=== PATIENT | female | born 1930 | race Caucasian/White ===

== ENCOUNTER 2019-01-14 12:20 | Inpatient (IN) | payer MEDICARE, MEDICAID ==
[~2019-01-14] VITALS: Ht 167.6 cm; Wt 90.3 kg
--- NOTE | 2019-01-14 12:44 | NUR ---
PT A/OX4, BIB PRIVATE AMBULANCE FROM [facility], C/C GENERALIZED WEAKNESS. PT DOES NOT APPEAR TO BE IN ANY APPARENT DISTRESS. VSS. PT DENIES ANY DISCOMFORT AT THIS TIME.
[2019-01-14] MEDS ORDERED: ACET-2154 PO (12:48)
[2019-01-14] MEDS ORDERED: BISA10SU61 RC (12:48)
[2019-01-14] MEDS ORDERED: ACET-2605 PO ×2 (12:48)
[2019-01-14] MEDS ORDERED: DABI150C PO (12:48)
[2019-01-14] MEDS ORDERED: ERGO500040 PO (12:48)
[2019-01-14] MEDS ORDERED: FURO-152 PO (12:48)
[2019-01-14] MEDS ORDERED: CLOP75TA15 PO (12:48)
[2019-01-14] MEDS ORDERED: MAGN400O6 PO (12:48)
[2019-01-14] MEDS ORDERED: NA P133E RC (12:48)
[2019-01-14] MEDS ORDERED: PHEN100C4 PO ×2 (12:48)
[2019-01-14] MEDS ORDERED: AMLO2.5T4 PO (12:48)
--- NOTE | 2019-01-14 13:07 | NUR ---
GRIEVANCE COORDINATOR AT BEDSIDE.
[2019-01-14 13:09] LABS: BASOPHILS # (AUTO) 0.1 K/uL (0.0-8.0); BASOPHILS % (AUTO) 0.6 % (0.0-2.0); EOSINOPHILS # (AUTO) 0.3 K/uL (0.0-0.7); EOSINOPHILS % (AUTO) 2.4 % (0.0-7.0); HEMATOCRIT 38.5 % (31.2-41.9); LYMPHOCYTES # (AUTO) 2.1 K/uL (20.0-40.0); MEAN CORPUSCULAR HEMOGLOBIN 30.4 uug (24.7-32.8); MEAN CORPUSCULAR HGB CONC 34 g/dL (32.3-35.6); MEAN CORPUSCULAR VOLUME 90.2 fL (75.5-95.3); NEUTROPHILS # (AUTO) 7.3 K/uL (1.8-8.9); PLATELET COUNT (AUTO) 240 K/uL (179-408); RED BLOOD CELL COUNT(AUTO) 4.27 MIL/uL (3.63-4.92); WHITE BLOOD COUNT (AUTO) 10.7 K/uL (3.8-11.8)
[2019-01-14 13:13] LABS: *BILIRUBIN,URIN NEGATIVE (NEGATIVE); *CLARITY,URINE CLEAR (CLEAR); *COLOR,URINE LIGHT YELLOW (YELLOW); *KETONES,URINE NEGATIVE (NEGATIVE); *UROBILINOGEN,URINE 0.2 E.U./dl (NORMAL); LEUKOCYTE ESTERASE ,URINE TRACE (NEGATIVE); NITRITE, URINE NEGATIVE (NEGATIVE); PH,URINE 5.5 (5.0-8.0); UGLUCOSE NEGATIVE (NEGATIVE)
[2019-01-14 13:17] LABS: CARBON DIOXIDE 23 mmol/L (21-32); CHLORIDE 103 mmol/L (98-107); CREATININE 0.6 mg/dL (0.6-1.3); GLUCOSE 102 mg/dL (74-106); POTASSIUM 4.7 mmol/L (3.5-5.1); UREA NITROGEN, BLOOD 18 mg/dL (7-18)
[2019-01-14 13:20] LABS: *BLOOD, URINE TRACE (NEGATIVE)
[2019-01-14 13:23] LABS: BACTERIA,URINE MANY /HPF (NONE SEEN); SQUAMOUS EPITHELIAL CELL,UR FEW /HPF (NONE SEEN)
[2019-01-14 13:29] LABS: ALANINE AMINOTRANSFERASE 17 U/L (14-59); ALKALINE PHOSPHATASE 137 U/L (50-136); ASPARTATE AMINOTRANSFERASE 14 U/L (15-37); BILIRUBIN,DIRECT 0.1 mg/dL (0.0-0.2); BILIRUBIN,TOTAL 0.4 mg/dL (0.2-1.0); TOTAL PROTEIN, SERUM 7.2 g/dL (6.4-8.2)
--- NOTE | 2019-01-14 14:02 | NUR ---
Radiology at bedside for US.
--- NOTE | 2019-01-14 14:28 | NUR ---
PT TAKEN TO RADIOLOGY FOR CT SCAN.
--- NOTE | 2019-01-14 14:45 | NUR ---
PT BACK IN ER FROM RADIOLOGY.
[2019-01-14] MEDS ORDERED: PHENYTOIN SODIUM EXTENDED 100 MG CAPSULE.SA PO SCH ×2 (16:15→17:00)
[2019-01-14] MEDS ORDERED: BISACODYL 10 MG SUPP.RECT RC PRN (16:15)
[2019-01-14] MEDS ORDERED: MAGNESIUM HYDROXIDE 30 ML LIQUID UDC PO PRN (16:15)
[2019-01-14] MEDS ORDERED: ACETAMINOPHEN 325 MG TABLET PO PRN (16:15)
--- NOTE | 2019-01-14 16:19 | NUR ---
ADMITTING REPORT GIVEN TO MICHELLE CLIFFORD.
--- NOTE | 2019-01-14 16:22 | NUR ---
Pt. admitted to ROOM 310, under care of DR. ORELLANA Belongs List completed
[2019-01-14] MEDS ORDERED: ONDANSETRON 4 MG/2 ML VIAL IV PRN (16:30)
[2019-01-14 17:00] VITALS: BP 148/70
[2019-01-14] MEDS: CEFTRIAXONE 1 G in IV DEXTROSE 5% 50 ML IV SCH (19:00)
[2019-01-14] MEDS: PHENYTOIN 100 MG/4 ML UDC PO SCH (19:06)
--- NOTE | 2019-01-14 19:38 | NUR ---
PT ARRIVED VIA GURNEY PT STABLE AT THIS TIME. IV IS PATENT AND INTACT. ON RA, HEP LOCK, DENIES PAIN AT THIS TIME. CONTINUE TO MONITOR.
[2019-01-14 19:57] VITALS: BP 156/71
[2019-01-14] MEDS: ENALAPRILAT DIHYDRATE 1.25 MG/1 ML VIAL IV PRN (20:28)
[2019-01-14] MEDS ORDERED: DABIGATRAN ETEXILATE MESYLATE 75 MG CAPSULE PO ONE (20:30)
[2019-01-14 22:00] VITALS: BP 103/58
[2019-01-14] MEDS: HYDROCODONE/APAP 5-325MG TABLET PO PRN (23:54)
[2019-01-15 01:16] VITALS: BP 94/54
[2019-01-15] MEDS: HYDROCODONE/APAP 5-325MG TABLET PO PRN (04:43)
[2019-01-15 05:05] VITALS: BP 114/62
--- NOTE | 2019-01-15 05:18 | NUR ---
pt slept intermittently through the night and was easily awoken, pt complained of leg pain, Homans sign is negative, Doppler study was negative for DVT. SCD applied and was helpful but pain medication was effective. pt denies having any difficulty breathing but with excessive movement pt has occasional labored breathing which resolves with rest. pt during the night had multiple episodes of urinary urgency, pt would feel like she needed to urinate but was unable to. bladder scan was done pt had 300ml, pt was able to pee after scan. All needs met, safety measures are in place, call light within reach, bed alarm is on.
[2019-01-15 05:56] LABS: BASOPHILS % (AUTO) 0.3 % (0.0-2.0); EOSINOPHILS # (AUTO) 0.2 K/uL (0.0-0.7); EOSINOPHILS % (AUTO) 2.2 % (0.0-7.0); HEMATOCRIT 37.8 % (31.2-41.9); LYMPHOCYTES # (AUTO) 1.8 K/uL (20.0-40.0); LYMPHOCYTES % (AUTO) 19.1 % (20.5-51.5); MEAN CORPUSCULAR HEMOGLOBIN 30.8 uug (24.7-32.8); MEAN CORPUSCULAR HGB CONC 34 g/dL (32.3-35.6); MEAN CORPUSCULAR VOLUME 89.5 fL (75.5-95.3); MONOCYTES # (AUTO) 0.9 K/uL (2.0-10.0); MONOCYTES % (AUTO) 9.8 % (0.0-11.0); NEUTROPHILS # (AUTO) 6.5 K/uL (1.8-8.9); NEUTROPHILS % (AUTO) 68.6 % (38.5-71.5); PLATELET COUNT (AUTO) 225 K/uL (179-408); RED BLOOD CELL COUNT(AUTO) 4.23 MIL/uL (3.63-4.92); WHITE BLOOD COUNT (AUTO) 9.5 K/uL (3.8-11.8)
[2019-01-15] MEDS: PANTOPRAZOLE SODIUM 40 MG TABLET.DR PO SCH (06:21)
[2019-01-15 06:37] LABS: IRON, SERUM 64 ug/dL (50-175)
[2019-01-15 06:40] LABS: ALANINE AMINOTRANSFERASE 17 U/L (14-59); ALKALINE PHOSPHATASE 129 U/L (50-136); ASPARTATE AMINOTRANSFERASE 8 U/L (15-37); BILIRUBIN,TOTAL 0.4 mg/dL (0.2-1.0); CARBON DIOXIDE 26 mmol/L (21-32); CHLORIDE 103 mmol/L (98-107); CHOLESTEROL 171 mg/dL (<200); CREATININE 0.8 mg/dL (0.6-1.3); GLUCOSE 97 mg/dL (74-106); HDL CHOLESTEROL 62 mg/dL (40-60); MAGNESIUM 1.9 mg/dL (1.8-2.4); PHOSPHOROUS 4.1 mg/dL (2.5-4.9); POTASSIUM 4.1 mmol/L (3.5-5.1); TOTAL PROTEIN, SERUM 6.7 g/dL (6.4-8.2); TRIGLYCERIDES 95 MG/DL (30-150); UREA NITROGEN, BLOOD 18 mg/dL (7-18)
[2019-01-15] MEDS: FUROSEMIDE 20 MG TABLET PO SCH (08:32)
[2019-01-15] MEDS: CLOPIDOGREL 75 MG TABLET PO SCH (08:32)
[2019-01-15] MEDS: PHENYTOIN 100 MG/4 ML UDC PO SCH ×2 (08:33→16:36)
[2019-01-15] MEDS: AMLODIPINE 2.5 MG TABLET PO SCH (08:36)
[2019-01-15 12:15] VITALS: BP 124/55
[2019-01-15] MEDS ORDERED: DABIGATRAN ETEXILATE MESYLATE 150 MG CAPSULE PO SCH (12:22)
[2019-01-15] MEDS: PHENYTOIN SODIUM EXTENDED 100 MG CAPSULE.SA PO SCH (12:50)
[2019-01-15 15:18] VITALS: BP 132/68
[2019-01-15] MEDS: CEFTRIAXONE 1 G in IV DEXTROSE 5% 50 ML IV SCH (17:05)
--- NOTE | 2019-01-15 18:43 | NUR ---
Patient resting in bed, no complaints of pain or distress noted. Patient continues in antibiotic treatment. Afebrile. Pradaxa brought in by family today, sent to pharmacy. Will endorse care to oncoming shift.
--- NOTE | 2019-01-15 20:00 | NUR ---
RECEIVED PATIENT AWAKE, ALERT, AND ORIENTED X 3-4, IN BED WITH FAMILY AT BEDSIDE. NO COMPLAINTS OF PAIN OR DISCOMFORT VERBALIZED. ALL SAFETY AND FALL PRECAUTION MEASURES IN PLACE. BED IN LOWEST POSITION WITH BRAKE APPLIED. 2 SIDE RAILS ARE UP AND IN LOCKED POSITION. CALL LARRY AND PERSONAL ITEMS ARE WITHIN REACH. WILL CONTINUE TO MONITOR.
[2019-01-15 20:27] VITALS: BP 111/64
[2019-01-15] MEDS: DABIGATRAN 75 MG PO SCH (20:29)
[2019-01-16 00:42] VITALS: BP 116/63
[2019-01-16 05:05] VITALS: BP 142/72
--- NOTE | 2019-01-16 05:25 | NUR ---
PATIENT SLEPT INTERMITTENTLY THROUGHOUT NIGHT. THERE WERE NO COMPLAINTS OF PAIN OR ACUTE DISTRESS THIS SHIFT. VS ARE WNL AND PATIENT IS STABLE WITH SINUS TACHY RHYTHM. ALL PRESCRIBED MEDICATIONS PROVIDED ORDERED AND TOLERATED WELL. ALL NURSING NEEDS MET PROMPTLY. SAFETY AND FALL PRECAUTIONS REMAIN IN PLACE. BED IN LOWEST POSITION WITH BRAKE APPLIED. 2 SIDE RAILS ARE UP AND IN LOCKED POSITION. CALL LIGHT AND PERSONAL ITEMS ARE WITHIN REACH AT ALL TIMES. WILL PROVIDE REPORT TO ONCOMING SHIFT.
[2019-01-16] MEDS: PANTOPRAZOLE SODIUM 40 MG TABLET.DR PO SCH (06:08)
[2019-01-16] MEDS: HYDROCODONE/APAP 5-325MG TABLET PO PRN ×2 (06:21→20:28)
[2019-01-16] MEDS ORDERED: FLEET ENEMA 133 ML BOTTLE RC PRN (09:00)
[2019-01-16] MEDS: CLOPIDOGREL 75 MG TABLET PO SCH (09:12)
[2019-01-16] MEDS: FUROSEMIDE 20 MG TABLET PO SCH (09:13)
[2019-01-16] MEDS: PHENYTOIN 100 MG/4 ML UDC PO SCH ×2 (09:15→17:24)
[2019-01-16] MEDS: AMLODIPINE 2.5 MG TABLET PO SCH (09:15)
[2019-01-16] MEDS: DABIGATRAN 75 MG PO SCH ×2 (09:17→20:27)
[2019-01-16 11:12] VITALS: BP 111/48
[2019-01-16] MEDS: PHENYTOIN SODIUM EXTENDED 100 MG CAPSULE.SA PO SCH (12:36)
[2019-01-16 18:00] VITALS: BP 121/68
--- NOTE | 2019-01-16 18:38 | NUR ---
PATIENT AO 4, NO SOB OR DISTRESS THIS SHIFT , COOPERATIVE WITH TREATMENT, VS WNL THIS SHIFT ORDERS CARED OUT SAFETY MAINTAINED
--- NOTE | 2019-01-16 20:00 | NUR ---
CHANGE OF SHIFT REPORT RECEIVED FROM VENESSA FLORENTINO. PATIENT IS AWAKE AND ALERT IN BED, ORIENTED X4. PATIENT HAS NO COMPLAINTS OF PAIN OR DISCOMFORT AT THIS TIME. IV SITE IS PATENT AND INTACT. VS ARE WNL AND PATIENT IS STABLE. SAFETY AND FALL PRECAUTIONS ARE IN PLACE. BED IN LOWEST POSITION WITH BRAKE APPLIED. 2 SIDE RAILS ARE UP AND IN LOCKED POSITION. CALL LIGHT AND PERSONAL ITEMS ARE WITHIN REACH AT ALL TIMES. WILL CONTINUE TO MONITOR.
[2019-01-16 20:04] VITALS: BP 125/68
[2019-01-16] MEDS: NITROFURANTOIN/NITROFURAN MAC 100 MG CAPSULE PO SCH (20:28)
[2019-01-17 01:15] VITALS: BP 137/69
--- NOTE | 2019-01-17 05:18 | NUR ---
PATIENT SLEPT INTERMITTENTLY AND COMFORTABLY THROUGHOUT NIGHT WITHOUT COMPLAINT OF PAIN, DISCOMFORT, OR ACUTE DISTRESS. VS ARE WNL AND PATIENT IS STABLE. ALL PRESCRIBED MEDICATIONS GIVEN ORDERED AND TOLERATED WELL. ORAL ANTIBIOTIC GIVEN WITH NO ADVERSE SIDE EFFECTS NOTED OR OBSERVED. ALL SAFETY AND FALL PRECAUTION MEASURES REMAIN IN PLACE. BED IS IN LOWEST POSITION AND BRAKE IS APPLIED. 2 SIDE RAILS ARE UP AND IN LOCKED POSITION. PERSONAL ITEMS AND CALL LIGHT ARE WITHIN REACH AT ALL TIMES. WILL PROVIDE REPORT TO ONCOMING SHIFT.
[2019-01-17 05:33] VITALS: BP 121/70
[2019-01-17] MEDS: PANTOPRAZOLE SODIUM 40 MG TABLET.DR PO SCH (06:13)
[2019-01-17] MEDS: HYDROCODONE/APAP 5-325MG TABLET PO PRN (06:16)
[2019-01-17 08:06] LABS: BASOPHILS % (AUTO) 0.1 % (0.0-2.0); EOSINOPHILS # (AUTO) 0.2 K/uL (0.0-0.7); EOSINOPHILS % (AUTO) 2.3 % (0.0-7.0); HEMATOCRIT 40.4 % (31.2-41.9); HEMOGLOBIN 13.7 g/dL (10.9-14.3); LYMPHOCYTES # (AUTO) 1.9 K/uL (20.0-40.0); LYMPHOCYTES % (AUTO) 17.5 % (20.5-51.5); MEAN CORPUSCULAR HEMOGLOBIN 30.3 uug (24.7-32.8); MEAN CORPUSCULAR HGB CONC 34 g/dL (32.3-35.6); MEAN CORPUSCULAR VOLUME 89.8 fL (75.5-95.3); MONOCYTES % (AUTO) 9.4 % (0.0-11.0); NEUTROPHILS # (AUTO) 7.5 K/uL (1.8-8.9); NEUTROPHILS % (AUTO) 70.7 % (38.5-71.5); PLATELET COUNT (AUTO) 235 K/uL (179-408); WHITE BLOOD COUNT (AUTO) 10.6 K/uL (3.8-11.8)
[2019-01-17 08:34] LABS: CARBON DIOXIDE 28 mmol/L (21-32); CHLORIDE 101 mmol/L (98-107); CREATININE 0.7 mg/dL (0.6-1.3); GLUCOSE 97 mg/dL (74-106); MAGNESIUM 2.2 mg/dL (1.8-2.4); PHOSPHOROUS 4.4 mg/dL (2.5-4.9); POTASSIUM 4.5 mmol/L (3.5-5.1); UREA NITROGEN, BLOOD 18 mg/dL (7-18)
[2019-01-17] MEDS: PHENYTOIN 100 MG/4 ML UDC PO SCH (08:47)
[2019-01-17] MEDS: DABIGATRAN 75 MG PO SCH (08:48)
[2019-01-17] MEDS: NITROFURANTOIN/NITROFURAN MAC 100 MG CAPSULE PO SCH (08:49)
[2019-01-17] MEDS: FUROSEMIDE 20 MG TABLET PO SCH (08:50)
[2019-01-17] MEDS: CLOPIDOGREL 75 MG TABLET PO SCH (08:50)
[2019-01-17] MEDS: AMLODIPINE 2.5 MG TABLET PO SCH (08:53)
--- NOTE | 2019-01-17 09:50 | NUR ---
PATIENT CAME FROM EGD, VS WNL, NO SOB
[2019-01-17 11:10] VITALS: BP 143/73
[2019-01-17] MEDS: PHENYTOIN SODIUM EXTENDED 100 MG CAPSULE.SA PO SCH (12:26)
[2019-01-17] MEDS ORDERED: CYANOCOBALAMIN 1000 MCG/ML VIAL IM SCH (12:45)
[2019-01-17] MEDS ORDERED: CELE100C PO (13:07)
[2019-01-17] MEDS ORDERED: AMLO5TAB4 PO (13:07)
[2019-01-17] MEDS ORDERED: ACID1TAB4 PO (13:07)
[2019-01-17] MEDS ORDERED: HYDR-3326 PO (13:07)
[2019-01-17] MEDS ORDERED: NITR100C11 PO (13:07)
[2019-01-17] MEDS ORDERED: CYAN10006 IM (13:07)
[2019-01-17] MEDS ORDERED: PANT40TA2 PO (13:07)
--- NOTE | 2019-01-17 15:25 | NUR ---
PATIENT IS PICKED UP BY AMBULANCE REPORT GIVEN TO [facility] AT [facility] VS WNL DISCHARGE DOCUMENTS SIGNED AND HARD COPY GIVEN
[2019-01-17 15:37] VITALS: BP 128/80
[2019-01-18] MEDS ORDERED: ERGOCALCIFEROL 50,000 UNIT CAPSULE PO SCH (09:00)
== END 2019-01-17 16:07 | DRG 689 ==
LOC: ER 12:20 → TELE3 17:01
PROVIDERS: ADMIT Internal Medicine; ATTEND Internal Medicine
DX: N39.0 Urinary tract infection, site not specified (principal); G92 Toxic encephalopathy; I13.0 Hypertensive heart and chronic kidney disease with heart failure and stage 1 through stage 4 chronic kidney disease, or unspecified chronic kidney disease; J98.11 Atelectasis; D68.59 Other primary thrombophilia; B96.20 Unspecified Escherichia coli [E. coli] as the cause of diseases classified elsewhere; M71.21 Synovial cyst of popliteal space [Baker], right knee; E78.5 Hyperlipidemia, unspecified; N18.9 Chronic kidney disease, unspecified; I50.9 Heart failure, unspecified; G62.9 Polyneuropathy, unspecified; E53.8 Deficiency of other specified B group vitamins; E66.9 Obesity, unspecified; Z68.32 Body mass index [BMI] 32.0-32.9, adult; G40.909 Epilepsy, unspecified, not intractable, without status epilepticus; I35.0 Nonrheumatic aortic (valve) stenosis; H91.90 Unspecified hearing loss, unspecified ear; F03.90 Unspecified dementia, unspecified severity, without behavioral disturbance, psychotic disturbance, mood disturbance, and anxiety; Z79.899 Other long term (current) drug therapy; Z79.02 Long term (current) use of antithrombotics/antiplatelets; Z87.891 Personal history of nicotine dependence; Z87.81 Personal history of (healed) traumatic fracture; M71.22 Synovial cyst of popliteal space [Baker], left knee; Z90.710 Acquired absence of both cervix and uterus; M16.11 Unilateral primary osteoarthritis, right hip; I67.2 Cerebral atherosclerosis
CPT/HCPCS: 36415; 70030-TC; 70450; 71045; 73502; 73551; 73590; 83550; 83605; 83735; 84100; 84443; 85025; 85730; 87040; 87077; 87086; 93005; 93307; 97110; 97530; A4663; G0378; J0696; J3420; J3490; J7060